=== PATIENT | female | born 1985 | race Caucasian/White ===

== ENCOUNTER 2024-08-12 09:40 | Outpatient (OUT) | payer OTHER, SELFPAY ==
--- NOTE | 2024-08-12 09:54 | US_ITS ---
[address] [address] Patient Name: MAURICIO KELLY MRN: [id number] date: 1985 Sex: F Assigned Patient Location: US Current Patient Location: Accession/Order Number: [id number] Exam Date: 08/12/2024 10:31 Report Date: 08/12/2024 10:34 At the request of: BRETT HART DO Procedure: US pelvis w/ transvaginal Pelvic ultrasound. Reason for exam: Irregular bleeding Comparison: none Technique: Transabdominal imaging of the uterus and ovaries was performed. Transvaginal imaging of the uterus and ovaries was also obtained. Additional spectral Doppler analysis of the ovaries was also obtained. Findings: Uterus measures 8.1 x 5.5 x 4.9 cm. No fibroid. Endometrium measures 3.4 mm without focal abnormality. IUD is in place. Right ovary measures 5.1 x 2.7 x 3.1 cm. Left ovary measures 2.5 x 1.9 x 1.8 cm. No adnexal mass or cyst. Normal arterial and venous Doppler waveforms of the ovaries. No free fluid. US/US pelvis w/ transvaginal Impression: Unremarkable pelvic ultrasound. Impression dictated by: Jarred Dugan Jr., D.O. 08/12/2024 10:34 AM Dictation [facility] Electron[facility] authenticated by: [id number] Y Date: 08/12/2024 10:34
[2024-08-12 10:39] LABS: Basophils Absolute Auto 0.1 10^3/uL (0.0-0.1); Basophils Percent Auto 0.8 % (0.2-2.0); Eosinophils Absolute Auto 0.1 10^3/uL (0.0-0.7); Eosinophils Percent Auto 0.7 % (0.9-7.0); Hematocrit 45.3 % (36.0-48.0); Hemoglobin 14.7 g/dL (12.0-16.0); Immature Granulocytes Abs Auto 0.03 10^3/uL (0.00-0.03); Immature Granulocytes Pct Auto 0.4 % (0.0-0.5); Lymphocytes Absolute Auto 1.4 10^3/uL (1.2-3.8); Mean Corpuscular HGB Conc 32.5 g/dL (29.9-35.2); Mean Corpuscular Volume 98.5 fL (81.0-99.0); Mean Platelet Volume 10.6 fL (9.5-13.5); Monocytes Absolute Auto 0.6 10^3/uL (0.3-0.8); Monocytes Percent Auto 8.7 % (1.7-12.0); Neutrophils Absolute Auto 4.9 10^3/uL (1.4-6.5); Neutrophils Percent Auto 69.4 % (43.0-75.0); Platelet Count 248 10^3/uL (150-450); Red Cell Distribution Width 12.1 % (11.0-15.0); White Blood Count 7.1 10^3/uL (4.0-11.0)
[2024-08-12 11:07] LABS: Free T4 0.92 ng/dL (0.76-1.46)
[2024-08-12 11:09] LABS: Estimated Average Glucose 97 mg/dL
[2024-08-12 11:14] LABS: Thyroid Stimulating Hormone 0.856 uIU/mL (0.358-3.740)
[2024-08-12 11:17] LABS: HCG Quantitative <1 mIU/mL
[2024-08-13 04:07] LABS: Estradiol 92.4 pg/mL (.); FSH 9.6 mIU/mL (.); Luteinizing Hormone(LH) 11.3 mIU/mL (.)
[2024-08-19 21:09] LABS: DHEA, Serum 355 ng/dL (31-701)
== END 2024-08-12 09:41 | disposition home or self-care (01) ==
LOC: US 09:45
PROVIDERS: PCP Family Medicine; Visit Provider Obstetrics & Gynecology
DX: N92.6 Irregular menstruation, unspecified (principal)
CPT/HCPCS: 36415; 76830; 76856; 82626; 82627; 82670; 83001; 83002; 83036; 84144; 84439; 84443; 84702; 85025

== ENCOUNTER 2024-08-17 08:39 | Outpatient (REF) | payer OTHER, SELFPAY | END 2024-08-17 08:40 | disposition home or self-care (01) | LOC: LAB 08:39 | PROVIDERS: PCP Family Medicine; Visit Provider Obstetrics & Gynecology | DX: N92.5 Other specified irregular menstruation (principal); N71.9 Inflammatory disease of uterus, unspecified ==

== ENCOUNTER 2024-09-12 09:05 | Outpatient (OUT) | payer OTHER, SELFPAY ==
--- OUTSIDE RECORDS SUMMARY | 2024-05-04 10:00 | XMS_ITS ---
Author Organization [facility] es Address [address] [place] [address] Care Team Providers Care Child Support Agent Name Role Phone Victorina Olson Primary Care Provider Mat Zavala Unavailable [phone] REASON FOR VISIT BOTTOM FRONT TEETH GUM LINE IRRIATED WAS GIVEN MEDICATED MOUTHWASH LAST VISIT DID NOT RELIEVE SYMPTOMS GUMS ARE INFLAMMED /PAIN Encounters Encounter Location Date Provider Diagnosis [address] [place] [address] 05/04/2024 Mat Zavala Plan Of Treatment No Information Progress Notes * MAURICIO KELLY ADOB: 4 (39 yo F)Acc No.[id number]:05/04/2024 Patient: MAURICIO MEIER Provider: Moncho Zavala DDS :1985 A ge:39 Y S ex:Female Date:05/04/2024 Address:[address] [place] [address] [id number] Pcp:Victorina Molina Subjective: * Chief Complaints: * 1 . BOTTOM FRONT TEETH GUM LINE IRRIATED WAS GIVEN MEDICATED MOUTHWASH LAST VISIT DID NOT RELIEVE SYMPTOMS GUMS ARE INFLAMMED /PAIN. * Medical History: Objective: * Vitals: Assessment: Plan: * Treatment: * Images: * Electronic signature of Sunita Zavala DDS on 09/12/2024 at 09:08 AM EDT Sign off status: Pending * Provider: Moncho Zavala DDS Date: 0 05/04/2024 Generated for Jarek fuchs/Marcellus/Kev on: 0 09/12/2024 09:08 AM EDT
--- OUTSIDE RECORDS SUMMARY | 2024-05-09 09:00 | XMS_ITS ---
Author Organization [facility] es Address [address] [place] [address] Care Team Providers Care Deputy Sheriff Generalist/Bailiff Name Role Phone Victorina Olson Primary Care Provider Mat Zavala Unavailable [phone] REASON FOR VISIT PERIO CHART W/ CHEL PER PASSPORT Encounters Encounter Location Date Provider Diagnosis [address] [facility] [place] [address] 05/09/2024 Victorina Gomez Plan Of Treatment No Information Progress Notes * MAURICIO KELLY ADOB: 4 (39 yo F)Acc No.[id number]:05/09/2024 Patient: Jaylyn DUARTE MAURICIO Moncho Provider: Juliette GOMEZ DDS :1985 A ge:39 Y S ex:Female Date:05/09/2024 Address:[address] [place] [address] [id number] Subjective: * Chief Complaints: * 1 . PERIO CHART W/ CHEL PER PASSPORT. * Medical History: Objective: * Vitals: Assessment: Plan: * Treatment: * Images: * Electronic signature of Fadumo Gomez DDS on 09/12/2024 at 09:08 AM EDT Sign off status: Pending * Provider: Juliette GOMEZ DDS Date: 0 05/09/2024 Generated for Printi ng/Faxing/eTransmitting on: 0 09/12/2024 09:08 AM EDT
--- OUTSIDE RECORDS SUMMARY | 2024-09-12 09:09 | XMS_ITS | Encounter Summary ---
Author Organization [facility] Address [address] [place] [address] Care Team Providers Care Dross Skimmer Name Role Phone Unavailable Primary Care Provider Unavailabl e Encounter Details Date Type Department Care Team (Late st Contact Info) Description 09/08/2024 Telephone [facility] [address] [place] [address] Nixon Álvarez, DO [address] [place], [place] [address] Social History Tobacco Use Types Packs/Day Years Used Date Smoking Tobacco: Never Assessed Comments Unknown Sex and Gender Information Value Date Recorded Sex Assigned at Not on file Legal Sex Female 11:47 PM EDT Gender Identity Not on file Sexual Orientation Not on file documented as of this encounter Miscellaneous Notes * Telephone Encounter - Leeanne Guaman - 09/08/2024 1:01 PM EDT Hospital called to let me know that Cris had missed her PAT appt last week and that they had left her 2 voicemails to reschedule. Her surgery date is 09/16/24. I called and spoke with patient who still wants to proceed with her procedure and she said she will call PAT today to reschedule her appt. Ioffered to give her the phone number and she said that she had it from the voicemails they had left. Patient is aware that without a completed PAT appt her surgery will have to be cancelled. documented in this encounter Plan of Treatment Upcoming Encounters Date Type Department Care Team (Late st Contact Info) Description 09/29/2024 3:30 PM EDT Office Visit [facility] [address] [place] [address] Johana James PA [address] [place] [address] documented as of this encounter Visit Diagnoses Not on filedocumented in this encounter
--- OUTSIDE RECORDS SUMMARY | 2024-09-12 09:09 | XMS_ITS | Clinical Summary ---
Author Organization [facility] Address [address] [place] [address] Care Team Providers Care Drivers' Cash Clerk Name Role Phone Unavailable Primary Care Provider Unavailabl e Allergies Active Allergy Reactions Criticality Noted Date Comments Metronidazole 08/08/2024 Hydrocodone 08/08/2024 Medications ciprofloxacin (Cipro) 500 MG tabletIndicatio ns:Urinary Tract Infection Take 1 tablet (500 mg) by mouth in the morning and 1 tablet (500 mg) before bedtime. Do all this for 7 days. 14 tablet 08/16/2024 08/24/19 Encounters Date Type Department Care Team Description 09/08/2024 Telephone [facility] [address] [place] [address] Brett Álvarez, 08/17/2024 11:30 AM EDT Procedure Visit [facility] [address] [place] [address] Brett Álvarez, DO Pre-op examination; Menorrhagia with regular cycle; Abnormal uterine bleeding; Pelvic pain in female; Request for sterilization 08/17/2024 Abstract [facility] [address] [place] [address] Brett Álvarez, 08/17/2024 External Result Encounter [facility] External Department Unsolicited Brett Álvarez, 08/16/2024 Telephone [facility] [address] [place] [address] Brett Álvarez, 08/12/2024 Clinisync Result Encounter [facility] External Department Unsolicited Brett Álvarez, 08/08/2024 3:20 PM EDT Office Visit [facility] OB [address] [facility] [address] Brett Álvarez DO Irregular bleeding 08/08/2024 Bamboo flowsheet [facility] OB [address] [place] [address] [place] [address] Brett Álvarez DO from Last 3 Months Social History Tobacco Use Types Packs/Day Years Used Date Smoking Tobacco: Never Assessed Comments Unknown Sex and Gender Information Value Date Recorded Sex Assigned at Not on file Legal Sex Female 11:47 PM EDT Gender Identity Not on file Sexual Orientation Not on file Last Filed Vital Signs Vital Sign Reading Time Taken Comments Blood Pressure 118/84 08/17/2024 12:03 PM EDT Pulse - - Temperature - - Respiratory Rate - - Oxygen Saturation - - Inhaled Oxygen Concentration - - Weight 70.6 kg (155 lb 12 oz) 08/17/2024 12:03 P M EDT Height 170.2 cm (5' 7 ) 08/08/2024 3:49 PM EDT Body Mass Index 24.39 08/08/2024 3:49 PM EDT Plan of Treatment Upcoming Encounters Date Type Department Care Team (Late st Contact Info) Description 09/29/2024 3:30 PM EDT Office Visit [facility] [address] [place] [address] Johana James PA [address] [facility] [place] [address] Procedures Procedure Name Priority Date/Time Associated Diagnosis Comments POCT , URINE Routine 08/17/2024 1:45 PM EDT Pre-op examination PATHOLOGY REQUEST FOR LAB ANA Routine 08/17/2024 12:00 AM EDT US PELVIS W/ TRANSVAGINAL 2024 10:34 AM EDT ALL DEHYDROEPIANDROSTERONE Routine 08/12 10:20 AM EDT ALL ESTRONE(E1) Routine 08/12/2024 10:20 AM EDT ALL PROGESTERONE Routine 08/12/2024 10:20 AM EDT ALL FOLLICLE STIMULATING HORMONE Routine 08/12/2024 10:20 AM EDT ALL LUTEINIZING HORMONE Routine 08/13/19 25 10:20 AM EDT ALL DHEA SULFATE Routine 08/12/2024 10:20 AM EDT TBH PREG QUANT HCG Routine 08/12/2024 10:20 AM EDT ALL THYROID STIM HORMONE Routine 025 10:20 AM EDT MLR HEMOGLOBIN A1C Routine 08/12/2024 10:20 AM EDT ALL THYROXINE (T4) FREE Routine 08/13/19 10:20 AM EDT ALL CBC WITH AUTO DIFF Routine 10:20 AM EDT POCT URINALYSIS DIPSTICK Routine 025 3:56 PM EDT Irregular bleeding POCT , URINE Routine 08/08/2024 3:56 PM EDT Irregular bleeding from Last 3 Months Results * POCT , urine manually resulted (08/17/2024 1:45 PM EDT) Only the most recent of2 resultswithin the time period is included. Preg Test, Ur Negative Negative Urine 08/17/2024 1:45 PM EDT Brett Preeti DO POINT OF CARE TEST ENTER/EDIT OR DERABLES Final Result * PATHOLOGY REQUEST FOR LAB ANA (08/17/2024 12:00 AM EDT) PATHOLOGY REQUEST FOR LAB ANA 08/23/2024 3:20 PM EDT [facility] Comment:See report. Scanned copy available in EMR. Other Topography unknown / Unknown 08/17/2024 08/18/2024 1:13 PM EDT Narrative [facility] - 08/23/2024 3:20 PM EDT EMBX us Brett Álvarez DO LAB BLOOD ORDERABLES Final Resul t Performing Organization Address City/State/[facility] Co de Phone Number [facility] [address] [place] [address], [facility] [address] [place] [address] * US PELVIS W/ TRANSVAGINAL (08/12/2024 10:34 AM EDT) Anatomical Region Laterality Modality Other 08/12/2024 10:3 4 AM EDT Narrative 08/12/2024 10:36 [place] [address] Ultrasound Report Signed Patient: CRIS KELLY MR#: [id number] : 1985 Acct:[id number] Age/Sex: 39 / F ADM Date: 08/12/24 Loc: US Attending Dr: Brett Álvarez D.O. Ordering Physician: Brett Álvarez D.O. Date of Service: 08/12/24 Procedure(s): US pelvis w/ transvaginal Accession Number(s): [id number] cc: Brett Álvarez D.O.; DAVID STARK [address] [address] Patient Name: CRIS KELLY MRN: [id number] date: 1985 Sex: F Assigned Patient Location: US Current Patient Location: US Accession/Order Number: [id number] Exam Date: 08/12/2024 10:31 Report Date: 08/12/2024 10:34 At the request of: BRETT ÁLVAREZ DO Procedure: US pelvis w/ transvaginal Pelvic ultrasound. Reason for exam: Irregular bleeding Comparison: none Technique: Transabdominal imaging of the uterus and ovaries was performed. Transvaginal imaging of the uterus and ovaries was also obtained. Additional spectral Doppler analysis of the ovaries was also obtained. Findings: Uterus measures 8.1 x 5.5 x 4.9 cm. No fibroid. Endometrium measures 3.4 mm without focal abnormality. IUD is in place. Right ovary measures 5.1 x 2.7 x 3.1 cm. Left ovary measures 2.5 x 1.9 x 1.8 cm. No adnexal mass or cyst. Normal arterial and venous Doppler waveforms of the ovaries. No free fluid. US/US pelvis w/ transvaginal Impression: Unremarkable pelvic ultrasound. Impression dictated by: Jarred Dugan Jr., D.O. 08/12/2024 10:34 AM Dictation Location: [place] [address] Electronically authenticated by: [id number] Y Date: 08/12/2024 10:34 Dictated By: Jarred Dugan M.D. Signed By: 08/12/24 1036 DD/ 1034 TD/TT: House Wrecker: Procedure Note Radiology, Radiologist, MD - 08/12/2024 [place] [address] Ultrasound Report Signed Patient: CRIS KELLY AMR#: [id number] : 1985Acct:[id number] Age/Sex: 39 / FADM Date: 08/12/24 Loc: US Attending Dr: Brett Álvarez D.O. Ordering Physician: Brett Álvarez D.O. Date of Service: 08/12/24 Procedure(s): US pelvis w/ transvaginal Accession Number(s): [id number] cc: Brett Álvarez D.O.; DAVID STARK [place] [id number] Patient Name: CRIS KELLY MRN: [id number] date: 1985 Sex: F Assigned Patient Location: US Current Patient Location: US Accession/Order Number: [id number] Exam Date: 08/12/2024 10:31 Report Date: 08/12/2024 10:34 At the request of: BRETT ÁLVAREZ DO Procedure: US pelvis w/ transvaginal Pelvic ultrasound. Reason for exam: Irregular bleeding Comparison: none Technique: Transabdominal imaging of the uterus and ovaries was performed. Transvaginal imaging of the uterus and ovaries was also obtained.Additional spectral Doppler analysis of the ovaries was also obtained. Findings: Uterus measures 8.1 x 5.5 x 4.9 cm. No fibroid. Endometrium measures 3.4 mm without focal abnormality. IUD is in place. Right ovary measures 5.1 x 2.7 x 3.1 cm. Left ovary measures 2.5 x 1.9 x1.8 cm. No adnexal mass or cyst. Normal arterial and venous Dopplerwaveforms of the ovaries. No free fluid. US/US pelvis w/ transvaginal Impression: Unremarkable pelvic ultrasound. Impression dictated by: Jarred Dugan Jr., D.O. 08/12/2024 10:34 AM Dictation Location: [place] [address] Electronically authenticated by: [id number] Y Date: 0:34 Dictated By: Jarred Dugan M.D. Signed By:08/12/24 1036 DD/ 1034 TD/TT: House Wrecker: us Brett Álvarez DO [facility] Final Result * [facility]H PREG QUANT HCG (08/12/2024 10:20 AM EDT) HCG QUANTITATIVE <1 mIU/mL [facility] Comment: 5-50 0.2-1 WEEK 50-500 1-2 WEEKS 100-5,000 2-3 WEEKS 500-10,000 3-4 WEEKS 1,000-50,000 4-5 WEEKS 10,000-100,000 5-6 WEEKS 15,000-200,000 6-8 WEEKS 10,000-100,000 2-3 MONTHS 08/12/2024 10:2 0 AM EDT 08/12/2024 10:26 AM EDT Narrative [facility] - 08/12/2024 11:17 AM EDT Brett Preeti DO [facility] Final Result Performing Organization Address [facility] Co de Phone Number [facility] * MLR HEMOGLOBIN A1C (08/12/2024 10:20 AM EDT) GLYCOHEMOGLOBIN A1C 5.0 4.5 - 6.2 % [facility] Comment: ADA RECOMMENDED LIMIT 4.0 - 6.0 ADA THERAPEUTIC TARGET < 7.0 ACTION SUGGESTED > 7.0 ESTIMATED AVERAGE GLUCOSE 97 mg/dL TB 08/12/2024 10:2 0 AM EDT 08/12/2024 10:26 AM EDT Narrative [facility] - 08/12/2024 11:11 AM EDT Brett Preeti DO [facility] Final Result Performing Organization Address [facility] Co de Phone Number [facility] * ALL THYROXINE (T4) FREE (08/12/2024 10:20 AM EDT) FREE T4 0.92 0.76 - 1.46 ng/dL [facility] 08/12/2024 10:2 0 AM EDT 08/12/2024 10:26 AM EDT Narrative [facility] - 08/12/2024 11:08 AM EDT Brett Preeti DO [facility] Final Result Performing Organization Address [facility] Co de Phone Number [facility] * ALL THYROID STIM HORMONE (08/12/2024 10:20 AM EDT) THYROID STIMULATING HORMONE 0.856 0.358 - 3.740 uIU/mL [facility] 08/12/2024 10:2 0 AM EDT 08/12/2024 10:26 AM EDT Narrative [facility] - 08/12/2024 11:17 AM EDT Brett Preeti DO CLIN[facility] Final Result Performing Organization Address City/[facility]/ZIP Co de Phone Number [facility] * ALL PROGESTERONE (08/12/2024 10:20 AM EDT) PROGESTERONE 3.0 . ng/mL [facility] Comment: Follicular phase 0.1 - 0.9 Luteal phase 1.8 - 23.9 Ovulation phase 0.1 - 12.0 First trimester 11.0 - 44.3 Second trimester 25.4 - 83.3 Third trimester 58.7 - 214.0 Postmenopausal 0.0 - 0.1 Performed at: [facility] Lab[address] [id number] Radiocommunications Technician: Deacon Franco PhD, Phone: [phone] 08/12/2024 10:2 0 AM EDT 08/12/2024 10:26 AM EDT Narrative [facility] - 08/13/2024 4:07 AM EDT [facility] Preeti DO [facility] Final Result Performing Organization Address [facility] Number [facility] * ALL LUTEINIZING HORMONE (08/12/2024 10:20 AM EDT) LUTEINIZING HORMONE(LH) 11.3 . mIU/mL [facility] Comment: Adult Female Range Follicular phase 2.4 - 12.6 Ovulation phase 14.0 - 95.6 Luteal phase 1.0 - 11.4 Postmenopausal 7.7 - 58.5 08/12/2024 10:2 0 AM EDT 08/12/2024 10:26 AM EDT Narrative [facility] - 08/13/2024 4:07 AM EDT [facility] Preeti DO [facility] Final Result Performing Organization Address [facility] Phone Number [facility] * ALL FOLLICLE STIMULATING HORMONE (08/12/2024 10:20 AM EDT) FSH 9.6 . mIU/mL [facility] Comment: Adult Female Range Follicular phase 3.5 - 12.5 Ovulation phase 4.7 - 21.5 Luteal phase 1.7 - 7.7 Postmenopausal 25.8 - 134.8 08/12/2024 10:2 0 AM EDT 08/12/2024 10:26 AM EDT Narrative [facility] - 08/13/2024 4:07 AM EDT Brett Preeti DO CLINIS[facility]NC Final Result Performing Organization Address [facility] Phone Number [facility] * ALL ESTRONE(E1) (08/12/2024 10:20 AM EDT) ESTRADIOL 92.4 . pg/mL TB Comment: Adult Female Range Follicular phase 12.5 - 166.0 Ovulation phase 85.8 - 498.0 Luteal phase 43.8 - 211.0 Postmenopausal <6.0 - 54.7 1st trimester 215.0 - >4300.0 Rosaline ECLIA methodology 08/12/2024 10:2 0 AM EDT 08/12/2024 10:26 AM EDT Narrative [facility] - 08/13/2024 4:07 AM EDT [facility] Final Result Performing Organization Address [facility] Number [facility] * ALL DHEA SULFATE (08/12/2024 10:20 AM EDT) DHEA-SULFATE 163.0 57.3 - 279.2 ug/dL TB 08/12/2024 10:2 0 AM EDT 08/12/2024 10:26 AM EDT Narrative [facility] - 08/13/2024 4:07 AM EDT [facility] Final Result Performing Organization Address [facility] Number [facility] * ALL DEHYDROEPIANDROSTERONE (08/12/2024 10:20 AM EDT) DHEA, SERUM 355 31 - 701 ng/dL TB Comment: This test was developed and its performance characteristics determined by [facility]. It has not been cleared or approved by the Food and Drug Administration. Performed at: [address] [id number] Radiocommunications Technician: Keturah Mast MD, Phone: [phone] 08/12/2024 10:2 0 AM EDT 08/12/2024 10:26 AM EDT Narrative [facility] - 08/19/2024 9:09 PM EDT Brett Preeti DO CLINISYNC Final Result [facility] * (ABNORMAL) ALL CBC WITH AUTO DIFF (08/12/2024 10:20 AM EDT) TBH WBC 7.1 4.0 - 11.0 10 3/uL TBH TBH RBC 4.60 4.20 - 5.40 10 6/uL TBH TBH HGB 14.7 12.0 - 16.0 g/dL TBH TBH HCT 45.3 36.0 - 48.0 % TBH TBH MCV 98.5 81.0 - 99.0 fL TBH TBH MCH 32.0 26.7 - 34.0 pg TBH TBH MCHC 32.5 29.9 - 35.2 g/dL TBH TBH RDW 12.1 11.0 - 15.0 % TBH TBH PLT 248 150 - 450 10 3/uL TBH TBH MPV 10.6 9.5 - 13.5 fL TBH NEUTROPHILS PERCENT AUTO 69.4 43.0 - 75.0 % TBH LYMPHOCYTES PERCENT AUTO 20.0(L) 20.5 - 60.0 % TBH MONOCYTES PERCENT AUTO 8.7 1.7 - 12.0 % TBH TBH EO % 0.7(L) 0.9 - 7.0 % TBH BASOPHILS PERCENT AUTO 0.8 0.2 - 2.0 % TBH IMMATURE GRANULOCYTES PCT AUTO 0.4 0.0 - 0.5 % TBH NEUTROPHILS ABSOLUTE AUTO 4.9 1.4 - 6.5 10 3/uL TBH LYMPHOCYTES ABSOLUTE AUTO 1.4 1.2 - 3.8 10 3/uL TBH MONOCYTES ABSOLUTE AUTO 0.6 0.3 - 0.8 10 3/uL TBH TBH EO # 0.1 0.0 - 0.7 10 3/uL TBH BASOPHILS ABSOLUTE AUTO 0.1 0.0 - 0.1 10 3/uL TBH IMMATURE GRANULOCYTES ABS AUTO 0.03 0.00 - 0.03 10 3/uL TBH 08/12/2024 10:2 0 AM EDT 08/12/2024 10:26 AM EDT Narrative [facility] - 08/12/2024 10:41 AM EDT Brett Preeti DO CLIN[facility]NC Final Result [facility] * (ABNORMAL) POCT urinalysis dipstick manually resulted (08/08/2024 3:56 PM EDT) Color, UA Yellow Clarity, UA Clear Glucose, UA Negative Negative - 2000(110) ++++ mg/dL Bilirubin, UA Negative Negative - 4(70) +++ mg/dL Ketones, UA Negative Negative - 160(16) ++++ mg/dL Spec Grav, UA 1.020 1 - 1.03 Blood, UA Positive Negative - 50 Vince/mcL Comment:trace-intact pH, UA 7.0 5 - 9 Protein, UA Negative Negative - 2000(20) ++++ mg/dL Urobilinogen, UA 0.2 0.2 - 12 mg/dL Leukocytes, UA Negative Negative - 500+++ Nura/mcL Nitrite, UA Negative Negative - Positive Urine 08/08/2024 3:56 PM EDT Brett Álvarez DO POINT OF CARE TEST ENTER/EDIT OR DERABLES Final Result from Last 3 Months Insurance [employer]
--- OUTSIDE RECORDS SUMMARY | 2024-09-12 09:09 | XMS_ITS | Encounter Summary ---
Author Organization [facility] Address [address] [place] [address] Care Team Providers Care Care Transition Manager Name Role Phone Unavailable Primary Care Provider Unavailabl e Encounter Details Date Type Department Care Team (Late st Contact Info) Description 08/17/2024 Abstract [facility] OB [address] [facility] [place] [address] Nixon Álvarez DO [address] [facility] [address] [place], [facility]11 Social History Tobacco Use Types Packs/Day Years Used Date Smoking Tobacco: Never Assessed Comments Unknown Sex and Gender Information Value Date Recorded Sex Assigned at Not on file Legal Sex Female 11:47 PM EDT Gender Identity Not on file Sexual Orientation Not on file documented as of this encounter Plan of Treatment Upcoming Encounters Date Type Department Care Team (Late st Contact Info) Description 09/29/2024 3:30 PM EDT Office Visit [facility] OB [address] [place] [address] Johana James PA [address] [facility] [address] [place], [facility]11 documented as of this encounter Visit Diagnoses Not on filedocumented in this encounter
--- NOTE | 2024-09-12 09:56 | XR_ITS ---
The [address] [address] Patient Name: MAURICIO KELLY MRN: [id number] date: 1985 Sex: F [facility] Location: [facility] Accession/Order Number: [id number] Exam Date: 09/12/2024 10:20 Report Date: 09/12/2024 10:21 At the request of: BRETT HART DO Procedure: XR chest 2V PA AND LATERAL CHEST: CLINICAL HISTORY: E-Cigarette Use. Presurgical clearance. COMPARISON: None There is slight hyperinflation. There is no focal parenchymal consolidation, effusion or pneumothorax. The cardiac, hilar and mediastinal silhouettes are within normal limits. There is no vascular congestion. The visualized bony thorax is intact. XR/XR chest 2V IMPRESSION: NO ACUTE CARDIOPULMONARY ABNORMALITY. Impression dictated by: Sugar Dumas M.D. 09/12/2024 10:21 AM Dictation Location: [place] [address] Electronically authenticated by: [id number] Y Date: 09/12/2024 10:21
== END 2024-09-12 09:06 | disposition home or self-care (01) ==
LOC: PST 09:06
PROVIDERS: Visit Provider Obstetrics & Gynecology
DX: Z01.810 Encounter for preprocedural cardiovascular examination (principal); N92.0 Excessive and frequent menstruation with regular cycle; N93.9 Abnormal uterine and vaginal bleeding, unspecified; R10.2 Pelvic and perineal pain
CPT/HCPCS: 71046

== ENCOUNTER 2024-09-16 08:08 | Day surgery (SDC) | payer OTHER, SELFPAY ==
--- OUTSIDE RECORDS SUMMARY | 2024-05-04 10:00 | XMS_ITS ---
Author Organization [facility] es Address [address] [place] [address] Care Team Providers Care Gravity Manager Name Role Phone Victorina Olson Primary Care Provider Mat Zavala Unavailable [phone] REASON FOR VISIT BOTTOM FRONT TEETH GUM LINE IRRIATED WAS GIVEN MEDICATED MOUTHWASH LAST VISIT DID NOT RELIEVE SYMPTOMS GUMS ARE INFLAMMED /PAIN Encounters Encounter Location Date Provider Diagnosis [address] [place] [address] 05/04/2024 Mat Zavala Plan Of Treatment No Information Progress Notes * MAURICIO KELLY ADOB: 4 (39 yo F)Acc No.[id number]:05/04/2024 Patient: MAURICIO MEIER Provider: Moncho Zavala DDS :1985 A ge:39 Y S ex:Female Date:05/04/2024 Address:[address] [place] [address] [id number] Pcp:Victorina Molina Subjective: * Chief Complaints: * 1 . BOTTOM FRONT TEETH GUM LINE IRRIATED WAS GIVEN MEDICATED MOUTHWASH LAST VISIT DID NOT RELIEVE SYMPTOMS GUMS ARE INFLAMMED /PAIN. * Medical History: Objective: * Vitals: Assessment: Plan: * Treatment: * Images: * Electronic signature of Sunita Zavala DDS on 09/16/2024 at 08:13 AM EDT Sign off status: Pending * Provider: Moncho Zavala DDS Date: 0 05/04/2024 Generated for Jarek fuchs/Marcellus/Kev on: 0 09/16/2024 08:13 AM EDT
--- OUTSIDE RECORDS SUMMARY | 2024-05-09 09:00 | XMS_ITS ---
Author Organization [facility] es Address [address] [place] [address] Care Team Providers Care International Travel Consultant Name Role Phone Victorina Olson Primary Care Provider Mat Zavala Unavailable [phone] REASON FOR VISIT PERIO CHART W/ CHEL PER PASSPORT Encounters Encounter Location Date Provider Diagnosis [address] [facility] [place] [address] 05/09/2024 Victorina Gomez Plan Of Treatment No Information Progress Notes * MAURICIO KELLY ADOB: 4 (39 yo F)Acc No.[id number]:05/09/2024 Patient: Jaylyn DUARTE MAURICIO Moncho Provider: Juliette GOMEZ DDS :1985 A ge:39 Y S ex:Female Date:05/09/2024 Address:[address] [place] [address] [id number] Subjective: * Chief Complaints: * 1 . PERIO CHART W/ CHEL PER PASSPORT. * Medical History: Objective: * Vitals: Assessment: Plan: * Treatment: * Images: * Electronic signature of Fadumo Gomez DDS on 09/16/2024 at 08:13 AM EDT Sign off status: Pending * Provider: Juliette GOMEZ DDS Date: 0 05/09/2024 Generated for Printi ng/Faxing/eTransmitting on: 0 09/16/2024 08:13 AM EDT
[2024-09-12 09:42] VITALS: BP 114/77; PULSE 63; TEMP 36.6; O2SAT 100; BMI 24.5
[2024-09-16] VITALS (11 sets, daily range): BP systolic 101–116; BP diastolic 54–76; PULSE 64–96; TEMP 36.4–36.8; O2SAT 95–100; BMI 24.1
--- OUTSIDE RECORDS SUMMARY | 2024-09-16 08:13 | XMS_ITS | Patient Health Record ---
Author Organization [facility] es Address [address] [place] [address] Care Team Providers Care Video Poker Floorman Name Role Phone Victorina Olson Primary Care Provider Mat Zavala Unavailable [phone] Reason For Referral No Information Encounters Encounter Location Date Provider Diagnosis [address] [address] 05/05/2024 Victorina Molina Encounter for dental examination and cleaning with abnormal findings Z01.21 and Other dental procedure status Z98.818 Assessments Encounter Date Diagnosis (ICD Code) Assessment Notes Treatment Notes Treatment Clinical Notes Section Notes 05/05/2024 Encounter for dental examination and cleaning with abnormal findings (ICD-10 - Z01.21) 05/05/2024 Other dental procedure status (ICD-10 - Z98.818) Plan Of Treatment No Information Insurance Providers Payer Name Payer Address Payer Phone Subscriber Number Group Number Insured Name Patient Relationship to Insured Coverage Start Date Coverage End Date [employer] [place] [address] [place] [address] [id number] MAURICIO KELLY Self - patient is the insured 3 [employer] [facility] Care[employer] e [address] [place] [address] [id number] MAURICIO KELLY Self - patient is the insured 3
--- OUTSIDE RECORDS SUMMARY | 2024-09-16 08:13 | XMS_ITS | Encounter Summary ---
Author Organization [facility] Address [address] [place] [address] Care Team Providers Care Head Loft Worker Name Role Phone Unavailable Primary Care Provider Unavailabl e Encounter Details Date Type Department Care Team (Late st Contact Info) Description 09/12/2024 Clinisync Result Encounter NOM[facility] External Department Unsolicited Brett Álvarez DO [address] [facility] [place] [address] Social History Tobacco Use Types Packs/Day Years [...] EDT Office Visit [facility] OB [address] [place] [address] Johana James PA [address] [facility] [place] [address] documented as of this encounter Procedures Procedure Name Priority Date/Time Associated Diagnosis Comments XR CHEST 2V 09/12/2024 10:21 AM EDT documented in this encounter Results * XR CHEST 2V (09/12/2024 10:21 AM EDT) Anatomical Region Laterality Modality Other 09/12/2024 10:2 1 AM EDT Narrative 09/12/2024 10:24 AM EDT The [address] [address] XRay Report Signed Patient: CRIS KELLY MR#: [id number] : 1985 Acct:[id number] Age/Sex: 39 / F ADM Date: 09/12/24 Loc: [facility] Attending Dr: Brett Álvarez D.O. Ordering Physician: Brett Álvarez D.O. Date of Service: 09/12/24 Procedure(s): XR chest 2V Accession Number(s): [id number] cc: Brett Álvarez D.O.; Physician,Non-Staff Antonio The [place] [address] Patient Name: CRIS KELLY MRN: [id number] date: 1985 Sex: F Assigned Patient Location: [facility] Current Patient Location: [facility] Accession/Order Number: [id number] Exam Date: 09/12/2024 10:20 Report Date: 09/12/2024 10:21 At the request of: BRETT ÁLVAREZ DO Procedure: XR chest 2V PA AND LATERAL CHEST: CLINICAL HISTORY: E-Cigarette Use. Presurgical clearance. COMPARISON: None There is slight hyperinflation. There is no focal parenchymal consolidation, effusion or pneumothorax. The cardiac, hilar and mediastinal silhouettes are within normal limits. There is no vascular congestion. The visualized bony thorax is intact. XR/XR chest 2V IMPRESSION: NO ACUTE CARDIOPULMONARY ABNORMALITY. Impression dictated by: Sugar Dumas M.D. 09/12/2024 10:21 AM Dictation Location: [place] [address] Electronically authenticated by: [id number] Y Date: 09/12/2024 10:21 Dictated By: Sugar Dumas M.D. Signed By: 09/12/24 1024 DD/ 1021 TD/TT: Core Stacker: Procedure Note Radiology, Radiologist, MD - 09/12/2024 [place] [address] XRay Report Signed Patient: CRIS KELLY AMR#: [id number] : 1985Acct:[id number] Age/Sex: 39 / FADM Date: 09/12/24 Loc: PST Attending Dr: Brett Álvarez D.O. Ordering Physician: Brett Álvarez D.O. Date of Service: 09/12/24 Procedure(s): XR chest 2V Accession Number(s): [id number] cc: Brett Álvarez D.O.; Physician,Non-Staff MAnabel [place] [id number] Patient Name: CRIS KELLY MRN: [id number] date: 1985 Sex: F [facility] Accession/Order Number: [id number] Exam Date: 09/12/2024 10:20 Report Date: 09/12/2024 10:21 At the request of: BRETT ÁLVAREZ DO Procedure: XR chest 2V PA AND LATERAL CHEST: CLINICAL HISTORY: E-Cigarette Use. Presurgical clearance. COMPARISON: None There is slight hyperinflation. There is no focal parenchymalconsolidation, effusion or pneumothorax. The cardiac, hilar and mediastinal silhouettesare within normal limits. There is no vascular congestion. The visualizedbony thorax is intact. XR/XR chest 2V IMPRESSION: NO ACUTE CARDIOPULMONARY ABNORMALITY. Impression dictated by: Sugar Dumas M.D. 09/12/2024 10:21 AM Dictation Location: [place] [address] Electronically authenticated by: [id number] Y Date: 0:21 Dictated By: Sugar Dumas M.D. Signed By:09/12/24 1024 DD/ 1021 TD/TT: Core Stacker: Brett Álvarez DO [facility] Final Result documented in this encounter Visit Diagnoses Not on filedocumented in this encounter
--- OUTSIDE RECORDS SUMMARY | 2024-09-16 08:14 | XMS_ITS | Encounter Summary ---
Author Organization [facility] Address [address] [place] [address] Care Team Providers Care Training And Development Project Leader Name Role Phone Unavailable Primary Care Provider Unavailabl e Encounter Details Date Type Department Care Team (Late st Contact Info) Description 08/17/2024 Abstract [facility] OB [address] [facility] [address] [address] Nixon Álvarez DO [address] [facility] [address] [place], [facility]11 Social History Tobacco Use Types Packs/Day Years [...] 09/29/2024 3:30 PM EDT Office Visit [facility] OB [address] [address] [address] Johana James PA [address] [facility] [address] [place], [facility]11 documented as of this encounter Visit Diagnoses Not on filedocumented in this encounter
--- OUTSIDE RECORDS SUMMARY | 2024-09-16 08:14 | XMS_ITS | Clinical Summary ---
Author Organization [facility] Address [address] [place] [address] Care Team Providers Care Fur Matcher Name Role Phone Unavailable Primary Care Provider Unavailabl e Allergies Active Allergy Reactions Criticality Noted Date Comments Metronidazole 08/08/2024 Hydrocodone 08/08/2024 Medications ciprofloxacin (Cipro) 500 MG tabletIndicatio ns:Urinary Tract Infection Take 1 tablet (500 mg) by mouth in the morning and 1 tablet (500 mg) before bedtime. Do all this for 7 days. 14 tablet 08/16/2024 08/24/19 25 Encounters Date Type Department Care Team Description 09/12/2024 Clinisync Result Encounter N[facility] External Department Unsolicited Brett Álvarez, 09/08/2024 Telephone [facility] [place] [address] [place] [address] Brett Álvarez, 08/17/2024 11:30 AM EDT Procedure Visit [facility] [address] [place] [address] Brett Álvarez, Pre-op examination; Menorrhagia with regular cycle; Abnormal uterine bleeding; Pelvic pain in female; Request for sterilization 08/17/2024 Abstract [facility] [address] [place] [address] Brett Álvarez, 08/17/2024 External Result Encounter NOMS External Department Unsolicited Brett Álvarez, DO 08/16/2024 Telephone [facility] [address] [place] [address] Brett Álvarez, 08/12/2024 Clinisync Result Encounter NOMS External Department Unsolicited Brett Álvarez DO 08/08/2024 3:20 PM EDT Office Visit [facility] OB [address] [facility] [address] Brett Álvarez DO Irregular bleeding 08/08/2024 Bamboo flowsheet [facility] OB [address] [facility] [place] [address] Brett Álvarez DO from Last 3 Months [...] 09/29/2024 3:30 PM EDT Office Visit [facility] OB [address] [place] [address] [place] [address] Johana James PA [address] [facility] [place] [address] Procedures Procedure Name Priority Date/Time Associated Diagnosis Comments XR CHEST 2V 09/12/2024 10:21 AM EDT POCT , URINE Routine 08/17/2024 1:45 PM [...] EDT ALL THYROXINE (T4) FREE Routine 08/13/19 25 10:20 AM EDT ALL CBC WITH AUTO DIFF Routine 10:20 AM EDT POCT URINALYSIS DIPSTICK Routine 025 3:56 PM EDT Irregular bleeding POCT , URINE Routine 08/08/2024 3:56 PM EDT Irregular bleeding from Last 3 Months Results * XR CHEST 2V (09/12/2024 10:21 AM EDT) Anatomical Region Laterality Modality Other 09/12/2024 10:2 1 AM EDT Narrative 09/12/2024 10:24 AM EDT The [address] [address] XRay Report Signed Patient: CRIS KELLY MR#: [id number] : 1985 Acct:[id number] Age/Sex: 39 / F ADM Date: 09/12/24 Loc: [facility] Attending Dr: Brett Álvarez D.O. Ordering Physician: Brett Álvarez D.O. Date of Service: 09/12/24 Procedure(s): XR chest 2V Accession Number(s): [id number] cc: Brett Álvarez D.O.; Physician,Non-Staff Antonio The [place] [address] Patient Name: CRIS KELLY MRN: [id number] date: 1985 Sex: F Assigned [facility]: [facility] Current Patient Location: [facility] Accession/Order Number: [id number] Exam Date: 09/12/2024 10:20 Report Date: 09/12/2024 [...] Dumas M.D. 09/12/2024 10:21 AM Dictation Location: [place] [address] Electronically authenticated by: [id number] Y Date: 09/12/2024 10:21 Dictated By: Sugar Dumas M.D. Signed By: 09/12/24 1024 DD/ 1021 TD/TT: Computer Consultant: Procedure Note Radiology, Radiologist, MD - 09/12/2024 [place] [address] XRay Report Signed Patient: CRIS KELLY AMR#: [id number] : 1985Acct:[id number] Age/Sex: 39 / FADM Date: 09/12/24 Loc: PST Attending Dr: Brett Álvarez D.O. Ordering Physician: Brett Álvarez D.O. Date of Service: 09/12/24 Procedure(s): XR chest 2V Accession Number(s): [id number] cc: Brett Álvarez D.O.; Physician,Non-Staff MAnabel [place] [id number] Patient Name: CRIS KELLY MRN: [id number] date: 1985 Sex: F Assigned Patient Location: [facility] Current Patient Location: [facility] Accession/Order Number: [id number] Exam Date: 09/12/2024 10:20 Report Date: 09/12/2024 [...] Dumas M.D. 09/12/2024 10:21 AM Dictation Location: [place] [address] Electronically authenticated by: [id number] Y Date: 0:21 Dictated By: Sugar Dumas M.D. Signed By:09/12/24 1024 DD/ 1021 TD/TT: Computer Consultant: us Brett Álvarez DO [facility] Final Result * POCT , urine manually resulted (08/17/2024 1:45 PM EDT) Only the most recent of2 resultswithin the time period is included. Preg Test, Ur Negative Negative Urine 08/17/2024 1:45 PM EDT Brett Álvarez DO POINT OF CARE TEST ENTER/EDIT OR DERABLES Final Result * PATHOLOGY REQUEST FOR LAB ANA (08/17/2024 12:00 AM EDT) PATHOLOGY REQUEST FOR LAB ANA 08/23/2024 3:20 PM EDT [facility] Comment:See report. Scanned copy available in EMR. Other Topography unknown / Unknown 08/17/2024 08/18/2024 1:13 PM EDT Narrative [facility] - 08/23/2024 3:20 PM EDT EMBX Brett Álvarez DO LAB BLOOD ORDERABLES Final Resul t Performing Organization Address City/State/[facility] Co de Phone Number [facility] [address] [place] [id number], [facility] [address] [place] [address] * US PELVIS W/ TRANSVAGINAL (08/12/2024 10:34 AM EDT) Anatomical Region Laterality Modality Other 08/12/2024 10:3 4 AM EDT Narrative 08/12/2024 10:36 [place] [address] Ultrasound Report Signed Patient: CRIS KELLY MR#: [id number] : 1985 Acct:[id number] Age/Sex: 39 / F ADM Date: 08/12/24 Loc: US Attending Dr: Brett Álvarez D.O. Ordering Physician: Brett Álvarez D.O. Date of Service: 08/12/24 Procedure(s): US pelvis w/ transvaginal Accession Number(s): [id number] cc: Brett Álvarez D.O.; DAVID STARK [address] [address] Patient Name: CRIS KELLY MRN: [id number] date: 1985 Sex: F Assigned Patient Location: [place] Current Patient Location: [place] Accession/Order Number: [id number] Exam Date: 08/12/2024 10:31 Report Date: 08/12/2024 [...] Jr., D.O. 08/12/2024 10:34 AM Dictation Location: [place] [address] Electronically authenticated by: [id number] Y Date: 08/12/2024 10:34 Dictated By: Jarred Dugan M.D. Signed By: 08/12/24 1036 DD/ 1034 TD/TT: Computer Consultant: Procedure Note Radiology, Radiologist, - 08/12/2024 [place] [address] Ultrasound Report Signed Patient: CRIS KELLY [facility]#: [id number] : 1985Acct:[id number] Age/Sex: 39 / FADM Date: 08/12/24 Loc: [place] Attending Dr: Brett Álvarez D.O. Ordering Physician: Brett Álvarez D.O. Date of Service: 08/12/24 Procedure(s): US pelvis w/ transvaginal Accession Number(s): [id number] cc: Brett Álvarez D.O.; DAVID STARK The [place] [address] Patient Name: CRIS KELLY MRN: [facility]:[id number] date: 1985 Sex: F Assigned Patient Location: [place] Current Patient Location: [place] Accession/Order Number: [id number] Exam Date: 08/12/2024 10:31 Report Date: 08/12/2024 [...] Jr., D.O. 08/12/2024 10:34 AM Dictation Location: [place] [address] Electronically authenticated by: [id number] Y Date: 0:34 Dictated By: Jarred Dugan M.D. Signed By:08/12/24 1036 DD/ 1034 TD/TT: Computer Consultant: us [facility] Final Result * [facility] PREG QUANT HCG (08/12/2024 10:20 AM EDT) HCG QUANTITATIVE <1 mIU/mL [facility] Comment: 5-50 0.2-1 WEEK 50-500 1-2 WEEKS 100-5,000 2-3 WEEKS 500-10,000 3-4 WEEKS 1,000-50,000 4-5 WEEKS 10,000-100,000 5-6 WEEKS 15,000-200,000 6-8 WEEKS 10,000-100,000 2-3 MONTHS 08/12/2024 10:2 0 AM EDT 08/12/2024 10:26 AM EDT Narrative [facility] - 08/12/2024 11:17 AM EDT Brettjalyn Escotoo DO [facility] Final Result Performing Organization Address City/[facility]/ZIP Co de Phone Number [facility] * MLR HEMOGLOBIN A1C (08/12/2024 10:20 AM EDT) GLYCOHEMOGLOBIN A1C 5.0 4.5 - 6.2 % [facility] Comment: ADA RECOMMENDED LIMIT 4.0 - 6.0 ADA THERAPEUTIC TARGET < 7.0 ACTION SUGGESTED > 7.0 ESTIMATED AVERAGE GLUCOSE 97 mg/dL TB 08/12/2024 10:2 0 AM EDT 08/12/2024 10:26 AM EDT Narrative [facility] - 08/12/2024 11:11 AM EDT [facility] Final Result Performing Organization Address [facility] Co de Phone Number [facility] * ALL THYROXINE (T4) FREE (08/12/2024 10:20 AM EDT) FREE T4 0.92 0.76 - 1.46 ng/dL TB 08/12/2024 10:2 0 AM EDT 08/12/2024 10:26 AM EDT Narrative [facility] - 08/12/2024 11:08 AM EDT [facility] Escotoo DO [facility] Final Result Performing Organization Address City/[facility]/ZIP Co de Phone Number [facility] * ALL THYROID STIM HORMONE (08/12/2024 10:20 AM EDT) THYROID STIMULATING HORMONE 0.856 0.358 - 3.740 uIU/mL TB 08/12/2024 10:2 0 AM EDT 08/12/2024 10:26 AM EDT Narrative [facility] - 08/12/2024 11:17 AM EDT Brett Preeti DO [facility] Final Result Performing Organization Address [facility] Co de Phone Number [facility] * ALL PROGESTERONE (08/12/2024 10:20 AM EDT) PROGESTERONE 3.0 . ng/mL [facility] Comment: Follicular phase 0.1 - 0.9 Luteal phase 1.8 - 23.9 Ovulation phase 0.1 - 12.0 First trimester 11.0 - 44.3 Second trimester 25.4 - 83.3 Third trimester 58.7 - 214.0 Postmenopausal 0.0 - 0.1 Performed at: [address] [id number] Supervisor Brake Repair: Deacon Franco PhD, Phone: [phone] 08/12/2024 10:2 0 AM EDT 08/12/2024 10:26 AM EDT Narrative [facility] - 08/13/2024 4:07 AM EDT Brett Preeti DO [facility] Final Result Performing Organization Address [facility] Phone Number [facility] * ALL LUTEINIZING HORMONE (08/12/2024 10:20 AM [...] Address City/[facility]/ZIP Co de Phone Number [facility] * ALL FOLLICLE STIMULATING HORMONE (08/12/2024 10:20 AM EDT) FSH 9.6 . mIU/mL [facility] Comment: Adult Female Range Follicular phase 3.5 - 12.5 Ovulation phase 4.7 - 21.5 Luteal phase 1.7 - 7.7 Postmenopausal 25.8 - 134.8 08/12/2024 10:2 0 AM EDT 08/12/2024 10:26 AM EDT Narrative [facility] - 08/13/2024 4:07 AM EDT us Brett Preeti DO [facility] Final Result Performing Organization Address City/[facility] Co de Phone Number [facility] * ALL ESTRONE(E1) (08/12/2024 10:20 AM EDT) ESTRADIOL 92.4 . pg/mL [facility] Comment: Adult Female Range Follicular phase 12.5 - 166.0 Ovulation phase 85.8 - 498.0 Luteal phase 43.8 - 211.0 Postmenopausal <6.0 - 54.7 1st trimester 215.0 - >4300.0 Rosaline ECLIA methodology 08/12/2024 10:2 0 AM EDT 08/12/2024 10:26 AM EDT Narrative [facility] - 08/13/2024 4:07 AM EDT Brett Preeti DO [facility] Final Result Performing Organization Address City/[facility] Phone Number [facility] * ALL DHEA SULFATE (08/12/2024 10:20 AM EDT) DHEA-SULFATE 163.0 57.3 - 279.2 ug/dL [facility] 08/12/2024 10:2 0 AM EDT 08/12/2024 10:26 AM EDT Narrative [facility] - 08/13/2024 4:07 AM EDT Brett Preeti DO [facility] Final Result Performing Organization Address City/[facility] Co de Phone Number [facility] * ALL DEHYDROEPIANDROSTERONE (08/12/2024 10:20 AM EDT) DHEA, SERUM 355 31 - 701 ng/dL [facility] Comment: This test was developed and its performance characteristics determined by [facility]. It has not been cleared or approved by the Food and Drug Administration. Performed at: [address] [id number] Supervisor Brake Repair: Keturah Mast MD, Phone: [phone] 08/12/2024 10:2 0 AM EDT 08/12/2024 10:26 AM EDT Narrative [facility] - 08/19/2024 9:09 PM EDT Brett Preeti DO [facility] Final Result [facility] * (ABNORMAL) ALL CBC WITH AUTO DIFF (08/12/2024 10:20 AM EDT) Pathologist [facility] TB WBC 7.1 4.0 - 11.0 10 3/uL TBH TBH RBC 4.60 4.20 - 5.40 10 6/uL TBH TBH HGB 14.7 12.0 - 16.0 g/dL TB[facility] TB HCT 45.3 36.0 - 48.0 % TBH TBH MCV 98.5 81.0 - 99.0 fL TBH TB MCH 32.0 26.7 - 34.0 pg TBH TB MCHC 32.5 29.9 - 35.2 g/dL TB TB RDW 12.1 11.0 - 15.0 % TBH [...] EDT Brett Preeti DO [facility] Final Result [facility] * (ABNORMAL) POCT urinalysis dipstick manually [...] - Positive Urine 08/08/2024 3:56 PM EDT [facility] Biosana Preeti DO POINT OF CARE TEST ENTER/EDIT OR DERABLES Final Result from Last 3 Months Insurance STITES scanR
--- OUTSIDE RECORDS SUMMARY | 2024-09-16 08:14 | XMS_ITS | Encounter Summary ---
Author Organization [facility] Address [address] [place] [address] Care Team Providers Care Boom Tender Name Role Phone Unavailable Primary Care Provider Unavailabl e Encounter Details Date Type Department Care Team (Late st Contact Info) Description 09/08/[address] [facility] OB [address] [place] [address] Nixon Álvarez, DO [address] [place], [place] [id number] Social History Tobacco Use Types Packs/Day Years [...] EDT Office Visit [facility] BCP OB [address] [facility] [place] [address] Johana James PA [address] [facility] [place] [address] documented as of this encounter Visit Diagnoses Not on filedocumented in this encounter
[2024-09-16 08:17] LABS: Basophils Percent Auto 0.6 % (0.2-2.0); Eosinophils Absolute Auto 0.1 10^3/uL (0.0-0.7); Eosinophils Percent Auto 0.9 % (0.9-7.0); Hematocrit 41.1 % (36.0-48.0); Hemoglobin 14.2 g/dL (12.0-16.0); Immature Granulocytes Abs Auto 0.01 10^3/uL (0.00-0.03); Immature Granulocytes Pct Auto 0.2 % (0.0-0.5); Lymphocytes Absolute Auto 1.4 10^3/uL (1.2-3.8); Mean Corpuscular HGB Conc 34.5 g/dL (29.9-35.2); Mean Corpuscular Volume 95.6 fL (81.0-99.0); Mean Platelet Volume 10.6 fL (9.5-13.5); Monocytes Absolute Auto 0.6 10^3/uL (0.3-0.8); Monocytes Percent Auto 9.4 % (1.7-12.0); Neutrophils Absolute Auto 4.2 10^3/uL (1.4-6.5); Neutrophils Percent Auto 66.9 % (43.0-75.0); Platelet Count 212 10^3/uL (150-450); Red Cell Distribution Width 11.7 % (11.0-15.0); White Blood Count 6.4 10^3/uL (4.0-11.0)
[2024-09-16] MEDS: LACTATED RINGER'S SOLUTION 1,000 ML 50 ML IV ×2 (08:41→10:54)
[2024-09-16 08:56] LABS: HCG Quantitative <1 mIU/mL
--- NOTE | 2024-09-16 10:45 | P.ON_ITS ---
Brief Operative Note Date of procedure: 09/16/24 Pre-op diagnosis general: menorrhagia, desires permanent sterilization Post-op diagnosis: same as pre-op Procedure: NAME OF PROCEDURE: robotic assisted Laparoscopic bilateral salpingectomy, with Michelle endometrial ablation with hysteroscopy, removal of iud PROCEDURE: The patient was taken back to the OR where she was prepped and draped in the normal sterile fashion after being placed in the dorsal lithotomy position, after being placed under general anesthesia without difficulty. a weighted speculum was then placed into the vagina. Pap and endometrial bx were performed without difficultyThe anterior lip was grasped with a single tooth tenaculum. The patient was then sounded to approximatley 9cm. The patient was gently sounded using Hegar dilators and the hysteroscope was passed through the cervix into the uterus where both ostia were seen. No gross evidence of polyps, fibroids or malignancy. The cervical length was noted to be 4cm. The Michelle ablation apparatus was set to approximately 5cm in length. This was placed in through the cervix and into the uterus. After the seal was tested, at that time the total ablation of 120 seconds was performed with the Michelle without difficulty. All instruments were removed from the vagina. please note iud was removed easily with ring forceps prior to ablation A wet sponge stick was placed into the patient's vagina. Attention was then turned to the patient's abdomen, where a scalpel was used to make a small infraumbilical incision. The S retractors were then used to dissect the underlying layers until the fascia could be seen. The fascia was then grasped with Windy clamps and tented up. A knife was then used to make a small incision to the fascia. The muscle was identified, at that time two sutures of #0 Vicryl on a GI needlewas then used and placed through the fascia. The peritoneum was then identified and entered bluntly. The 10-4 Stanislav was then placed into the patient's abdomen. This was confirmed with direct visualization of the bowel, using the laparoscope. The patient's abdomen was then insufflated using approximately 4 liters of CO2 gas. Survey of the patient's abdomen demonstrated normal appearing ovaries, uterus and tubes. A second and third lateral robotic ports, which was 8mm in size, was then placed laterally after incision was made in the skin under direct visualization. the robotic arms were engaged. The patient's tube on the patient's right side was identified. The tube was then tented up using a grasper. The ligasure was used to transect and coagulate the mesosalpingx from the fimbriated end to the insertion at the uterus, the tube was amputated and removed in its entirety.? Excellent hemostasis was noted. ?This was performed on the contralateral sideas well. The lateral ports were then moved under direct visualization with excellent hemostasis. The abdomen was deinsufflated. All instruments were removed from the patient's abdomen. The fascia was closed using the #0 Vicryl on GI needle. The skin was closed using 4- 0 Vicryl subcuticularly. All instruments were removed from the patient's vagina as well. The patient was taken out of the dorsal lithotomy position and placed in the supine position and taken to recovery in stable condition. Sponge, lap and needle counts were correct x2. ??? Anesthesia: JUAN Surgeon: Nixon Álvarez Chainsaw Mechanic: Charlotte Lynn Estimated blood loss (mL): 5 Pathology: other (tubes) Condition: stable Disposition: PACU Urinary Catheter Management Urinary Catheter Management Urethral: Cath placed during this visit: no
== END 2024-09-16 12:30 | disposition home or self-care (01) ==
LOC: SURGOUT 08:08
PROVIDERS: Visit Provider Obstetrics & Gynecology
PROC: (CPT 00840; principal; 2024-09-16 09:30)
DX: Z30.2 Encounter for sterilization (principal); N92.0 Excessive and frequent menstruation with regular cycle; N93.9 Abnormal uterine and vaginal bleeding, unspecified; R10.2 Pelvic and perineal pain; F17.290 Nicotine dependence, other tobacco product, uncomplicated
CPT/HCPCS: 00840; 00952; 58301; 58563; 58661; 36415; 84702; 85025; 88302; J1100; J1885; J2250; J2405; J3010